=== PATIENT | female | born 1995 | race Caucasian/White ===

== ENCOUNTER 2016-04-14 12:08 | Emergency (ER) | payer SELFPAY ==
[~2016-04-14] VITALS: Ht 177.8 cm; Wt 97.5 kg
[~2016-04-14 12:08] MED LIST: ACYC200C PO; CITA40TA12 PO; TRAZ100T12 PO
[2016-04-14 13:00] VITALS: BP 129/61
--- NOTE | 2016-04-14 13:22 | PHYS DOC ---
Past Medical History Past Medical History: Other Additional Past Medical Histor: genital herpes, insomnia Past Surgical History: No Surgical History Alcohol Use: None Drug Use: None, Cocaine, Marijuana Adult General Chief Complaint Chief Complaint: FOREIGNBODY EAR HPI HPI Patient is a 20 year old male presents emergency department stating that she had placed tissue in her right ear last night because her boyfriend had a TV up to loud. She states when she went to try to get the tissue as she was unsuccessful. She states that her boyfriend tried to get that out but was unable to reach the tissue. Patient states she has muffled hearing in the ear. She denies any drainage or discharge. Review of Systems Review of Systems Constitutional: Denies fever or chills [] Eyes: Denies change in visual acuity, redness, or eye pain [] HENT: Denies nasal congestion or sore throat. C/o foreign body to the right ear Respiratory: Denies cough or shortness of breath [] Cardiovascular: No additional information not addressed in HPI [] Musculoskeletal: Denies back pain or joint pain [] Integument: Denies rash or skin lesions [] Neurologic: Denies headache, focal weakness or sensory changes [] Allergies Allergies Allergies Coded Allergies Type Severity Reaction Last Updated Verified Penicillins Allergy Intermediate 09/20/13 Yes Physical Exam Physical Exam Constitutional: Well developed, well nourished, no acute distress, non-toxic appearance. [] HENT: Normocephalic, atraumatic, bilateral external ears normal, oropharynx moist, no oral exudates, nose normal. Left tympanic membrane was normal. Right tympanic membrane was unable to visualize is a foreign body was noted. Eyes: PERRLA, EOMI, conjunctiva normal, no discharge. [] Neck: Normal range of motion, no tenderness, supple, no stridor. [] Cardiovascular: patient pink warm and dry Lungs & Thorax: no respiratory distress Skin: Warm, dry, no erythema, no rash. [] Back: No tenderness Extremities: No tenderness, no cyanosis, no clubbing, ROM intact, no edema. [] Neurologic: Alert and oriented X 3, normal motor function, normal sensory function, no focal deficits noted. [] Psychologic: Affect normal, judgement normal, mood normal. [] Current Patient Data Vital Signs Vital Signs Date Time Temp Pulse Resp B/P Pulse Ox O2 Delivery O2 Flow Rate FiO2 2/20/17 13:00 97.9 64 18 96 Room Air 97.9 EKG EKG [] Radiology/Procedures Radiology/Procedures [] Course & Med Decision Making Course & Med Decision Making Pertinent Labs and Imaging studies reviewed. (See chart for details) Alligator clamps was used to remove foreign body in the right ear. Tympanic membrane appears to be normal. Patient was instructed to avoid placing things in her ear. Patient will be discharged home in stable condition. Recommended Tylenol or ibuprofen for pain and discomfort. Patient agrees with discharge instructions treatment regimens and follow-up recommendations. [] Dragon Disclaimer Dragon Disclaimer This electronic medical record was generated, in whole or in part, using a voice recognition dictation system. Departure Departure Impression: Primary Impression: Foreign body in right ear, initial encounter Disposition: 01 HOME, SELF-CARE Condition: STABLE Referrals: NO PCP (PCP) Patient Instructions: Ear Foreign Body, [id number] Additional Instructions: Avoid placing objects into the ears. Tylenol or ibuprofen for pain and discomfort. Follow-up through primary care physician as needed. Return back to emergency percent symptoms become worse. JOSE RAUL STONER NP Apr 14, 2016 13:22
== END 2016-04-14 13:45 | disposition home or self-care (01) ==
LOC: ER 12:08
DX: T16.1XXA Foreign body in right ear, initial encounter (principal); G47.00 Insomnia, unspecified; F12.10 Cannabis abuse, uncomplicated; F14.10 Cocaine abuse, uncomplicated; Z88.0 Allergy status to penicillin; X58.XXXA Exposure to other specified factors, initial encounter; Y93.89 Activity, other specified; Y99.8 Other external cause status; Y92.89 Other specified places as the place of occurrence of the external cause
CPT/HCPCS: 69200; 99284-25